=== PATIENT | female | born 1945 | race Caucasian/White ===

== ENCOUNTER 2020-02-09 14:49 | Outpatient (CLI) | payer MEDICARE, OTHER, SELFPAY ==
--- NOTE | 2020-02-09 14:58 | MM_ITS ---
WS: [id number] BILATERAL DIGITAL SCREENING MAMMOGRAPHY WITH CAD CLINICAL INFORMATION: SCREENING HISTORY: Screening mammogram. No current complaints. History of bilateral breast reduction. History o f right breast biopsy. COMPARISON: July 09, 2018 TECHNIQUE: Bilateral CC and MLO views. FINDINGS: Scattered fibroglandular densities bilaterally. Previously described 6 mm subareolar density right br east is unchanged. No suspicious focal mass, asymmetry, calcifications, or architectural distortion. No evidence of malignancy. Lucent centered calcifications. Vascular calcification. MM/[place] [id number] IMPRESSION: BI-RADS: 2-Benign FOLLOW UP: 1 Year Follow-up Recommend return to annual screening mammography.
== END 2020-02-09 14:50 | disposition home or self-care (01) ==
LOC: RADSHAW 14:54
PROVIDERS: PCP Family Medicine; Visit Provider Family Medicine
DX: Z12.31 Encounter for screening mammogram for malignant neoplasm of breast (principal)
CPT/HCPCS: 77067

== ENCOUNTER → 2020-04-06 12:53 | Outpatient (BNVA) | payer MEDICARE, OTHER, SELFPAY | PROVIDERS: PCP Family Medicine; Visit Provider Dermatology | DX: D69.2 Other nonthrombocytopenic purpura (principal); M67.449 Ganglion, unspecified hand; S60.10XA Contusion of unspecified finger with damage to nail, initial encounter; X58.XXXA Exposure to other specified factors, initial encounter; I87.2 Venous insufficiency (chronic) (peripheral); L57.0 Actinic keratosis; Z12.83 Encounter for screening for malignant neoplasm of skin | CPT/HCPCS: 17000; 17003; 99203 ==

== ENCOUNTER 2021-05-04 10:45 | Outpatient (CLI) | payer MEDICARE, OTHER, SELFPAY ==
--- NOTE | 2021-05-04 11:00 | XR_ITS ---
WS: [id number] DEXA (DUAL ENERGY X-RAY ABSORPTIOMETRY) Bone mineral density was performed using a [employer] machine. HISTORY: POST MENOPAUSAL COMPARISON: None available. Lumbar spine BMD (L1-L4): 1.687 g/cm2 T score: 4.2 Z score: 5.6 Total hip BMD: Left: 0.931 g/cm2. T score: -0.6 Z score: 1.0 Right: 0.904 g/cm2. T score: -0.8 Z score: 0.8 10 year probability of a major osteoporotic fracture is 12%. XR/XR DEXA axial skeleton* [id number] IMPRESSION: NORMAL BONE MINERAL DENSITY based upon the WHO classification for females.
== END 2021-05-04 10:46 | disposition home or self-care (01) ==
PROVIDERS: PCP Family Medicine; Visit Provider Family Medicine
DX: I25.10 Atherosclerotic heart disease of native coronary artery without angina pectoris (principal); I10 Essential (primary) hypertension; E78.5 Hyperlipidemia, unspecified; Z78.0 Asymptomatic menopausal state
CPT/HCPCS: 77080

== ENCOUNTER 2021-05-25 10:34 | Outpatient (CLI) | payer MEDICARE, OTHER, SELFPAY ==
--- NOTE | 2021-05-25 10:37 | MM_ITS ---
WS: [id number] BILATERAL DIGITAL SCREENING MAMMOGRAPHY WITH CAD CLINICAL INFORMATION: SCREENING HISTORY: Screening mammogram. No current complaints. COMPARISON: February 09, 2020 TECHNIQUE: Bilateral CC and MLO views. FINDINGS: History of breast reduction Scattered fibroglandular densities bilaterally. Punctate and lucent centered calcifications. Vascular calcification. No suspicious focal mass, asymmetry, calcifications, or architectural distortion. No evidence of malignancy. MM/[place] [id number] IMPRESSION: BI-RADS: 2-Benign FOLLOW UP: 1 Year Follow-up Recommend return to annual screening mammography.
== END 2021-05-25 10:35 | disposition home or self-care (01) ==
LOC: RADSHAW 10:35
PROVIDERS: PCP Family Medicine; Visit Provider Family Medicine
DX: Z12.31 Encounter for screening mammogram for malignant neoplasm of breast (principal)
CPT/HCPCS: 77067

== ENCOUNTER → 2022-02-14 14:40 | Outpatient (BNVA) | payer MEDICARE, OTHER, SELFPAY | PROVIDERS: PCP Family Medicine; Visit Provider Physician Assistant | DX: M51.36 Other intervertebral disc degeneration, lumbar region (principal); M43.16 Spondylolisthesis, lumbar region; M25.561 Pain in right knee; M25.562 Pain in left knee; M48.062 Spinal stenosis, lumbar region with neurogenic claudication | CPT/HCPCS: 72110; 73560; 73565; 99203; 99204 ==

== ENCOUNTER 2022-02-25 11:13 | Emergency (ER) | payer MEDICARE, OTHER, SELFPAY ==
[2022-02-25 11:26] VITALS: BP 148/95; PULSE 105; RESP 16; TEMP 36.7; O2SAT 98; BMI 29.0
--- NOTE | 2022-02-25 11:40 | XRR_ITS ---
PROCEDURE INFORMATION: Exam: XR Left Hand Exam date and time: 02/25/2022 12:52 PM Age: 76 years old Clinical indication: Injury or trauma; Other: Dog bite; Hand; Left; Additional info: Dog bit injury to hand TECHNIQUE: Imaging protocol: XR Left hand. Views: 3 or more views. COMPARISON: No relevant prior studies available. FINDINGS: Bones/joints: Osseous structures are intact. Negative for fracture. Moderate DJD at the base of the thumb and at several interphalangeal joint spaces. Soft tissues: No radiopaque foreign body. XR/XR hand LT min 3V* [id number] IMPRESSION: No acute findings.
--- NOTE | 2022-02-25 13:08 | W.ED.ANIMALB ---
HPI - Animal Bite General: Chief Complaint: Animal Bite Stated Complaint: Dog bite to L hand Time Seen by Provider: 02/25/22 12:52 History of Present Illness: Patient is a 76-year-old female comes to the ED with dog bite to left hand. Patient was feeding her 2 dogs and she usually keeps them at that time. She did not keep them during feeding this morning and dog started fighting over food. She went in to break the dogs up and one of them bit her left hand. Dogs are fully vaccinated including rabies vaccinations. 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 She has multiple lacerations on her second and third digit of left hand with some pain and swelling as well. She rinsed lacerations under some water and then cleaned them with hydrogen peroxide. She has not taken anything for pain before coming to the ED. She is not up-to-date on her tetanus. Associated symptoms: Deny chills, fever(s) or headache(s) Review of Systems Const: Denies: fever(s), chills or fatigue Eyes: Denies: change in vision or eye discomfort ENMT: Denies: throat pain, odynophagia, nasal discharge or nasal congestion Card: Denies: chest pain, palpitations, edema, swelling of feet/ankles, dyspnea on exertion or orthopnea Resp: Denies: dyspnea, productive cough or non-productive cough GI: Denies: abdominal pain, nausea, vomiting, diarrhea, constipation or hematochezia : Denies: flank pain, dysuria or hematuria Musc: Denies: neck pain, back pain or extremity swelling Skin/Breast: Reports: new lesions (Dog bite lacerations to left hand); Denies: rash Neuro: Denies: headache(s), numbness in extremities or weakness in extremities PFS ED PFSH: Medical History Glaucoma Hypertension Family History Daughter No problems noted. Other CAD (coronary artery disease) Cancer Denies family history of Diabetes Hypertension Stroke Social History Smoking and tobacco status: never smoked Alcohol intake: current Alcohol intake frequency: holidays/special occasions only History of recent travel: Yes (travels from [facility]) Physical Exam Const: COMMON NORMALS: no acute distress, patient oriented x3 and alert GENERAL APPEARANCE: cooperative HENMT: COMMON NORMALS: normocephalic HEAD & SCALP: normocephalic MOUTH: Normal oral and palatal mucosa present THROAT: posterior oropharynx normal and uvula midline Neck/C-Spine: COMMON NORMALS: supple GENERAL: Yes normal visual inspection Resp: COMMON NORMALS: normal respiratory effort, No retractions, No use of accessory muscles and clear to auscultation bilaterally AUSCULTATION: clear to auscultation bilaterally Cardio: COMMON NORMALS: regular rate, regular rhythm, S1 normal heart sound present, S2 normal heart sound present, No gallops present (Cardio), No clicks present (Cardio), No murmurs present (Cardio) and Peripheral pulses 2+ throughout RATE: regular rate RHYTHM: regular rhythm HEART SOUNDS: S1 normal heart sound present and S2 normal heart sound present PERIPHERAL PULSES: Peripheral pulses 2+ throughout GI: COMMON NORMALS: Normal to inspection, nondistended, normoactive bowel sounds present, Soft to palpation, non-tender and no masses PALPATION: Yes Soft to palpation : COMMON NORMALS: Yes no CVA tenderness BLADDER/KIDNEY EXAM: Yes no CVA tenderness Back/Pelvis: COMMON NORMALS: no CVA tenderness Extremity: NARRATIVE EXTREMITY EXAM: Patient has 2 lacerations that are irregular shaped approximately 1 cm in length on second digit of left hand. She also has 2 small superficial lacerations and puncture wounds on palm of left hand. She has a 2 cm linear laceration in palm of left hand between third and fourth digit. Neuro: COMMON NORMALS: patient oriented x3 and moves all extremities SENSORIUM/ORIENTATION: Yes alert Skin: GENERAL SKIN EXAM: dry skin Procedures Laceration Laceration 1: Site: hand (left) Side (If applicable): left Size (cm): 2 Description: linear Depth: simple, single layer Local Anesthetic: lidocaine 2% Amount of anesthesia used (mL): 3 Pre-repair: irrigated extensively (Irrigated extensively with normal saline and beta iodine wash.) Skin layer closed with: nylon Size (cm): 4-0 Number of sutures: 3 Technique: simple, interrupted Nerve Block Nerve Block 1: Time out performed: Yes Local Anesthetic: lidocaine 2% Amount of anesthesia used (mL): 4 Side: left Nerve Blocks: digital (2nd digit) Procedure Successful: Yes Patient Tolerated Procedure: well Complications: none Additional Comments: Pain was controlled while extensive cleaning and irrigation of wound with saline and beta iodine was performed. Course Vital Signs: Vital signs: Vital Signs Temperature 98.1 F 02/25/22 11:26 Pulse Rate 105 H 02/25/22 11:26 Respiratory Rate 16 02/25/22 11:26 Blood Pressure 148/95 02/25/22 11:26 Pulse Oximetry 98 02/25/22 11:26 MDM - Animal Bite Medical Decision Making Patient is a 68-year-old female comes to the ED with dog bite to left hand. She has multiple lacerations on left hand but most of them are under 1 cm. She does have 1 laceration that is 2 cm in length that lidocaine 2% was used locally and 3 sutures were placed to close up laceration. All lacerations were irrigated extensively with normal saline and iodine wash by nurse. Patient's hand was also soaked in saline and beta iodine solution as well. Lidocaine 2% was used on first digit as a digital block to help manage pain while cleaning wounds. X-ray showed no acute fractures or findings, but there does appear to be a small defect noted in the bone of the middle phalanx where bite injury occurred. The rest of patient's dog bite lacerations on the hand were left open to allow for any drainage. Triple antibiotic ointment was applied on laceration sites and nurse also applied a bandage. Patient was given updated tetanus here in the ED. Patient was given a dose of IM Rocephin due to possible dog bite injury to bone. She was discharged home with a prescription for Augmentin and norco for pain and told to follow-up with her PCP in the next 7 to 10 days reevaluation and to have sutures removed. Patient understood and agreed with plan. Lab Data Radiology Impressions Hand X-Ray 02/25/22 11:40 IMPRESSION: No acute findings. I reviewed the left hand x-ray and there does appear to be a possible cortical defect noted in middle phalanx of second digit which Is right where dog bite injury occurred and could be result of that. Discharge Plan Discharge Patient Disposition: Home Clinical Impression: Dog bite of hand Qualifiers: Encounter type: initial encounter Laterality: left Qualified Code(s): S61.452A - Open bite of left hand, initial encounter Condition: Stable Prescriptions: New amoxicillin-pot clavulanate 500-125 mg tablet 1 tab PO BID 10 Days Qty: 20 0RF No Action benazepril [Lotensin] 40 mg tablet 40 mg PO DAILY 0RF hydrochlorothiazide 25 mg tablet 25 mg PO DAILY 0RF allopurinol 100 mg tablet 100 mg PO DAILY 0RF Premarin 0.625 mg tablet 0.625 mg PO DAILY 0RF magnesium 200 mg tablet 200 mg PO DAILY 0RF calcium carbonate [Calcium 500] 500 mg calcium (1,250 mg) tablet 500 mg PO DAILY 0RF potassium gluconate 595 mg (99 mg) tablet 595 mg PO DAILY 0RF aspirin [Aspir-81] 81 mg tablet,delayed release (DR/EC) 81 mg PO DAILY 0RF cholecalciferol (vitamin D3) [Vitamin D3] 50 mcg (2,000 unit) capsule 50 mcg PO DAILY 0RF multivitamin Capsule 1 cap PO DAILY 0RF Lumigan 0.01 % drops 1 drop ophthalmic (eye) DAILY 0RF timolol 0.5 % drops 1 drop ophthalmic (eye) BID 0RF gabapentin 300 mg capsule 300 mg PO DAILY 0RF Discharge Orders: Discharge ED (Routine); Ordered 02/25/22 Ordered By: Zev Greenberg Referrals: Casey Benedict MD [Primary Care Provider] - Discharge Diet: Regular Discharge Activity: Limit activity as instructed Patient Instructions: Animal Bite (ED), Care For Your Stitches (DC), Acute Wounds (DC), Opioid Safety, Wound Care (General) Activity Restrictions/Additional Instructions: Take full course of antibiotics as prescribed. Keep laceration site clean and dry for the next 48 hours. Then after that you can clean with soap and water and re-bandage daily. Apply triple antibiotic ointment on wounds twice a day. Watch for signs of infection such as redness, warmth, increased tenderness and puslike drainage. If you see the signs of infection return to the ED, urgent care or PCP for reevaluation. call your PCP to schedule a follow-up appointment for reevaluation and suture removal in about 7-10 days. Continue taking all home meds. Follow discharge plans as discussed. You can return to the ED if symptoms worsen. Coding Level of Care Code ED Courtesy Driver for Travis Fwwei Exam Comprehensive
[2022-02-25] MEDS: acetaminophen 500 mg Tablet 1000 MG PO (13:18)
[2022-02-25] MEDS: tetanus-dipt-pertussis 0.5 mL SDV IM (13:18)
[2022-02-25] MEDS: lidocaine 2% INJ 20 mL 10 ML INJECTION (14:12)
[2022-02-25] MEDS: cefTRIAXone 1,000 MG in lidocaine 1% 2.1 ML 2 MG IM (15:17)
[2022-02-25] MEDS: neomycin-poly-bacitracin oint 28 gm 1 APPLIC TOPICAL (15:18)
--- NOTE | 2022-02-25 15:21 | PC.NURSE ---
Pt's lacerations bandaged and antibiotic ointment applied.
== END 2022-02-25 15:22 | disposition home or self-care (01) ==
PROVIDERS: Emergency Provider Physician Assistant; PCP Family Medicine
DX: S61.452A Open bite of left hand, initial encounter (principal); W54.0XXA Bitten by dog, initial encounter; Z23 Encounter for immunization
CPT/HCPCS: 12001; 73130; 90471; 90715; 96372; 99284; J0696

== ENCOUNTER → 2022-04-04 11:56 | Outpatient (BNVA) | payer MEDICARE, OTHER, SELFPAY | PROVIDERS: PCP Family Medicine; Visit Provider Family Medicine | DX: E78.5 Hyperlipidemia, unspecified (principal) | CPT/HCPCS: 80053; 80061; 85025 ==

== ENCOUNTER 2022-04-05 06:34 | Outpatient (CLI) | payer MEDICARE, OTHER, SELFPAY ==
--- NOTE | 2022-04-05 07:15 | MR_ITS ---
WS: [id number] MRI LUMBAR SPINE NONCONTRAST TECHNIQUE: Sagittal T1, T2 and STIR imaging. Axial T1 and T2 imaging. CLINICAL INFORMATION: lower back pain COMPARISON: None. FINDINGS: Minimal lumbar curve. No acute compression. No high-grade central canal stenosis. Slight anterolisthe sis L4 on L5. Slight retrolisthesis L2 on L3. Incidental Tarlov cyst in the sacrum. Tiny disc protrusion lower thoracic spine T12-L1 with slight effacement of ventral thecal sac. L1-L2: Mild disc osteophytic ridging. Disc desiccation. Mild facet arthropathy. Spinal canal and fora men are patent. L2-L3: Slight retrolisthesis L2 on L3. Impingement on traversing L3 nerve roots bilaterally. Moderate facet arthropathy. Mild to moderate RIGHT and mild LEFT foraminal narrowing. L3-L4: Mild annular bulging. Slight effacement of ventral thecal sac. Slight impingement on the trave rsing RIGHT L4 nerve root in the subarticular recess. Small LEFT foraminal protrusion with mild LEFT foraminal narrowing. Moderate to advanced facet arthropathy with ligamentum flavum hypertrophy. L4-L5: Mild annular bulge with a tiny annular tear. Mild central canal stenosis. Narrowing of the sub articular recess bilaterally. Advanced facet arthropathy. Foramen are patent. L5-S1: No significant disc bulging. Moderate facet arthropathy. Spinal canal and foramen are patent. LEFT renal cysts. Incidental Tarlov cysts in the sacrum. MR/MR lumbar spine wo con* [id number] IMPRESSION: 1. Mild lumbar curve. No acute compression. No high-grade central canal stenos is. 2. Slight anterolisthesis L4 on L5 with mild central canal 3. Slight retrolisthesis L2 on L3 with narrowing of the subarticular recess bi laterally. Mild to moderate RIGHT L2-L3 foraminal narrowing. 4. Tiny LEFT foraminal protrusion L3-L4 with mild LEFT foraminal narrowing. 5. Advanced facet arthropathy L4-L5 and L5-S1.
== END 2022-04-05 06:35 | disposition home or self-care (01) ==
LOC: RAD 06:36
PROVIDERS: PCP Family Medicine; Visit Provider Physician Assistant
DX: M43.16 Spondylolisthesis, lumbar region (principal); M48.062 Spinal stenosis, lumbar region with neurogenic claudication; M51.36 Other intervertebral disc degeneration, lumbar region
CPT/HCPCS: 72148

== ENCOUNTER → 2022-04-20 13:21 | Outpatient (BNVA) | payer MEDICARE, OTHER, SELFPAY | PROVIDERS: PCP Family Medicine; Visit Provider Orthopaedic Surgery | DX: M48.062 Spinal stenosis, lumbar region with neurogenic claudication (principal) | CPT/HCPCS: 99213; 99214 ==

== ENCOUNTER → 2022-05-15 08:50 | Outpatient (BNVA) | payer MEDICARE, OTHER, SELFPAY | PROVIDERS: PCP Family Medicine; Visit Provider Anesthesiology Pain Medicine | DX: M48.062 Spinal stenosis, lumbar region with neurogenic claudication (principal); M43.16 Spondylolisthesis, lumbar region; M51.36 Other intervertebral disc degeneration, lumbar region; M47.816 Spondylosis without myelopathy or radiculopathy, lumbar region; M79.604 Pain in right leg; M79.605 Pain in left leg | CPT/HCPCS: 99205 ==

== ENCOUNTER 2022-06-10 15:30 | Emergency (ER) | payer MEDICARE, OTHER, SELFPAY ==
--- NOTE | 2022-06-10 15:33 | XRR_ITS ---
PROCEDURE INFORMATION: Exam: XR Chest Exam date and time: 06/10/2022 4:15 PM Age: 77 years old Clinical indication: Pain; Chest pressure; Additional info: Chest pain TECHNIQUE: Imaging protocol: Radiologic exam of the chest. Views: 1 view. COMPARISON: No relevant prior studies available. FINDINGS: Lungs: Unremarkable. No consolidation. Pleural spaces: Unremarkable. No pleural effusion. No pneumothorax. Heart/Mediastinum: Unremarkable. No cardiomegaly. Bones/joints: Unremarkable. XR/XR chest 1V portable [id number] IMPRESSION: No acute findings.
[2022-06-10 15:40] VITALS: BP 144/80; PULSE 105; RESP 21; TEMP 36.7; O2SAT 95; BMI 29.2
--- NOTE | 2022-06-10 15:44 | ECG_ITS ---
[facility] Test Date: 2022-06-10 Pat Name: Radha Howard Department: Room: Gender: Female Benefit Specialist: : 1945 Requested By: Koffi Wade Order Number: [id number] Bobo MD: Mike Saini M.D. Measurements Intervals Binger Rate: 81 P: 34 IL: 128 QRS: 23 QRSD: 118 T: 56 QT: 381 QTc: 443 Interpretive Statements SINUS RHYTHM POSSIBLE LEFT ATRIAL ENLARGEMENT [-0.1mV P-WAVE IN V1/V2] LOW QRS VOLTAGE IN PRECORDIAL LEADS [QRS DEFLECTION < 1.0 mV IN CHEST LEADS] MODERATE INTRAVENTRICULAR CONDUCTION DELAY [110+ ms QRS DURATION] MODERATE ST DEPRESSION [0.05+ mV ST DEPRESSION] No previous ECG available for comparison Electronically Signed On 06-11-2022 8:33:44 CDT by Mike Saini M.D. [email or web address]
--- NOTE | 2022-06-10 15:59 | CTR_ITS ---
PROCEDURE INFORMATION: Exam: CT Abdomen And Pelvis Without Contrast Exam date and time: 06/10/2022 4:29 PM Age: 77 years old Clinical indication: Abdominal pain; Epigastric; Prior surgery; Surgery date: 6+ months; Surgery type: Hyster, gb; Additional info: Epigastric abd pain TECHNIQUE: Imaging protocol: Computed tomography of the abdomen and pelvis without contrast. Radiation optimization: All CT scans at this facility use at least one of these dose optimization techniques: automated exposure control; mA and/or kV adjustment per patient size (includes targeted exams where dose is matched to clinical indication); or iterative reconstruction. COMPARISON: MR lumbar spine wo con* [id number] 04/05/2022 7:47 AM RADIATION DOSE METRICS: Total DLP (mGy-cm): 667.97 FINDINGS: Liver: Normal. No mass. Gallbladder and bile ducts: The gallbladder has been removed. Pancreas: Normal. No ductal dilation. Spleen: Normal. No splenomegaly. Adrenal glands: Normal. No mass. Kidneys and ureters: Normal. No hydronephrosis. Stomach and bowel: There is diverticulosis of the colon without evidence of diverticulitis. There are air-fluid levels in nondilated small bowel loops in the left upper quadrant abdomen. Appendix: No evidence of appendicitis. Intraperitoneal space: Unremarkable. No free air. No significant fluid collection. Vasculature: Unremarkable. No abdominal aortic aneurysm. Lymph nodes: Unremarkable. No enlarged lymph nodes. Urinary bladder: Unremarkable as visualized. Reproductive: The uterus is not visualized, consistent with hysterectomy. Bones/joints: Unremarkable. No acute fracture. Soft tissues: Unremarkable. CT/CT abdomen pelvis wo con [id number] IMPRESSION: There are air-fluid levels in nondilated small bowel loops in the left upper quadrant abdomen which can be seen with a nonspecific enteritis.
--- NOTE | 2022-06-10 16:00 | ED_ITS ---
HPI - Chest Pain General: Chief Complaint: Chest Pain Stated Complaint: Chest pains Time Seen by Provider: 06/10/22 15:48 Source: patient Mode of arrival: ambulatory Limitations: no limitations History of Present Illness: 77-year-old female states that throughout the night last night and today she has been having some epigastric abdominal pain. States been a burning type pain in her upper abdomen states that today she started having some burning in her chest that seem to radiate from her abdomen. States the pain is mild in nature rates it a 3 out of 10 denies any worsening improving factors she has had no vomiting or diarrhea no diaphoresis. Associated symptoms: Reports abdominal pain and nausea; Deny dyspnea or fever(s) Review of Systems Const: Denies: fever(s), chills, body aches or change in appetite Eyes: Denies: blurry vision or eye discomfort ENMT: Denies: throat pain or dental pain Card: Reports: chest pain Resp: Denies: dyspnea GI: Reports: abdominal pain and nausea : Denies: dysuria Musc: Denies: neck pain or back pain Skin/Breast: Denies: rash Neuro: Denies: headache(s) Psych: Denies: depression Frederic/Lymph: Denies: easy bruising All/Imm: Denies: urticaria PFSH ED PFSH: Medical History Glaucoma Hypertension Family History Daughter No problems noted. Other CAD (coronary artery disease) Cancer Denies family history of Diabetes Hypertension Stroke Social History Smoking and tobacco status: never smoked Second hand smoke exposure: Yes Alcohol intake: never History of recent travel: No Physical Exam Const: COMMON NORMALS: no acute distress, patient oriented x3 and healthy appearing HENMT: COMMON NORMALS: normocephalic and atraumatic HEAD & SCALP: normocephalic and atraumatic Eye: COMMON NORMALS: Equal, round and reactive pupils present and EOMs intact bilaterally PUPIL: Yes Equal, round and reactive pupils present Neck/C-Spine: COMMON NORMALS: full ROM and supple Chest: COMMONS NORMALS: normal inspection of the chest and normal palpation of entire chest wall Resp: COMMON NORMALS: normal respiratory effort, No retractions, No use of accessory muscles and clear to auscultation bilaterally AUSCULTATION: clear to auscultation bilaterally Cardio: COMMON NORMALS: regular rate, regular rhythm and No murmurs present (Cardio) RATE: regular rate RHYTHM: regular rhythm GI: COMMON NORMALS: Normal to inspection, nondistended, normoactive bowel sounds present, Soft to palpation, non-tender and no masses PALPATION: Yes Soft to palpation Extremity: COMMON NORMALS: normal to inspection and full ROM Neuro: COMMON NORMALS: patient oriented x3, moves all extremities and no focal motor deficits Psych: COMMON NORMALS: mental status grossly normal, Normal thought process present and cooperative THOUGHT PROCESS: Normal thought process present Skin: COMMON NORMALS: no rashes or lesions noted and no wounds GENERAL SKIN EXAM: no rashes or lesions noted Procedures Intubation Time out performed: Yes sedative: none ET Tube Size: 8 Tube Secured Depth (cm): 26 Tube Secured Location: teeth Tube Placement Confirmation: visualized tube passing through cords, equal breath sounds bilaterally, no breath sounds over epigastrium and confirmation by capnometry Patient Tolerated Procedure: well Course Vital Signs: Vital signs: Vital Signs Temperature 98.0 F 06/10/22 15:40 Pulse Rate 82 06/10/22 16:05 Respiratory Rate 17 06/10/22 16:05 Blood Pressure 153/83 06/10/22 16:05 Pulse Oximetry 98 06/10/22 16:05 Oxygen Delivery Me thod 06/10/22 15:40 MDM - Chest Pain Medical Decision Making aPatient really presented here with epigastric abdominal pain that radiated into her chest her pain had been completely resolved by GI cocktail first EKG showed no ST elevation. I blood drawn including troponin, the troponin came back quite elevated at 1400 and I went out and asked for a second EKG. Miss carvalho had just went to the bathroom and walked back to her room and then was found unresponsive with no pulse. Patient had multiple rounds of chest compressions along with epinephrine never had any risks return of spontaneous circulation. Patient's time of was 1728 from a cardiac arrest. Lab Data : 06/10/22 16:05 06/10/22 16:05 Radiology Impressions Chest X-Ray 06/10/22 15:33 IMPRESSION: No acute findings. Abdomen/Pelvis CT 06/10/22 15:59 IMPRESSION: There are air-fluid levels in nondilated small bowel loops in the left upper quadrant abdomen which can be seen with a nonspecific enteritis. Laboratory Results WBC 13.9 10^3/uL (4.0-10.0) H 06/10/22 16:05 RBC 4.51 10^6/uL (4.1-5.3) 06/10/22 16:05 Hgb 14.1 g/dL (11.5-15.3) 06/10/22 16:05 Hct 44.3 % (37.0-47.0) 06/10/22 16:05 MCV 98.2 fl (81-99) 06/10/22 16:05 MCH 31.3 pg (28.0-34.0) 06/10/22 16:05 MCHC 31.8 g/dL (30.0-36.0) 06/10/22 16:05 RDW 13.6 % (12.1-15.1) 06/10/22 16:05 Plt Count 280 10^3/cmm (130-400) 06/10/22 16:05 MPV 10.5 fL (7.4-10.4) H 06/10/22 16:05 Neut % (Auto) 75.4 % 06/10/22 16:05 Lymph % (Auto) 12.4 % 06/10/22 16:05 [place] % (Auto) 11.4 % 06/10/22 16:05 Eos % (Auto) 0.1 % 06/10/22 16:05 Baso % (Auto) 0.4 % 06/10/22 16:05 Neut # (Auto) 10.50 10^3/uL (1.8-7.7) H 06/10/22 16:05 Lymph # (Auto) 1.7 10^3/uL (0.8-4.8) 06/10/22 16:05 [place] # (Auto) 1.6 10^3/uL (0.2-0.9) H 06/10/22 16:05 Eos # (Auto) 0.0 10^3/uL (0.0-0.8) 06/10/22 16:05 Baso # (Auto) 0.1 10^3/uL (0.0-0.1) 06/10/22 16:05 Nucleated RBC % (auto) 0 % 06/10/22 16:05 Nucleated RBCs # 0.0 /100WBC 06/10/22 16:05 Sodium 133 mmol/L (136-145) L 06/10/22 16:05 Potassium 4.2 mmol/L (3.5-5.1) 06/10/22 16:05 Chloride 94 mmol/L (98-107) L 06/10/22 16:05 Carbon Dioxide 25 mmol/L (22-29) 06/10/22 16:05 Anion Gap 18.2 (5-19) 06/10/22 16:05 BUN 14 mg/dL (8-23) 06/10/22 16:05 Creatinine 0.7 mg/dL (0.5-0.9) 06/10/22 16:05 GFR Calculation Not Reportable 06/10/22 16:05 Glucose 134 mg/dL (65-115) H 06/10/22 16:05 Calculated Osmolality 278 mOsm/kg (285-295) L 06/10/22 16:05 Calcium 9.7 mg/dL (8.5-10.5) 06/10/22 16:05 Total Bilirubin 0.7 mg/dL (0.15-1.2) 06/10/22 16:05 AST 259 U/L (0-32) H 06/10/22 16:05 ALT 48 U/L (0-33) H 06/10/22 16:05 Alkaline Phosphatase 85 U/L (35-105) 06/10/22 16:05 Troponin T Baseline 1407 ng/L (0-10) H* 06/10/22 16:05 Total Protein 8.3 g/dL (6.6-8.7) 06/10/22 16:05 Albumin 3.7 g/dL (3.5-5.2) 06/10/22 16:05 Globulin 4.6 g/dL (1.3-4.6) 06/10/22 16:05 Lipase 15 U/L (13-60) 06/10/22 16:05 EKG Data EKG 1: I personally reviewed and interpreted this EKG as follows: EKG interpretation date: 06/10/22 EKG interpretation time: 15:44 Interpretation: Normal sinus rhythm heart rate [address] or T wave abnormalities QRS 118 QTC 418 Discharge Plan Discharge Patient Disposition: Clinical Impression: Cardiac arrest Coding Level of Care Code ED Exceptional Student Education Teacher for Travis Fwwei Exam Comprehensive
[2022-06-10 16:05] VITALS: BP 153/83; PULSE 82; RESP 17; O2SAT 98
[2022-06-10] MEDS: ondansetron 2 mg/ML SDV 2 mL 4 MG IVP (16:23)
[2022-06-10] MEDS: lidocaine 2% viscous 15 ML, aluminum-mag hydrox-simethicon 30 ML, sucralfate oral liq 1 GM PO (16:24)
[2022-06-10 16:52] LABS: Basophils # 0.1 10^3/uL (0.0-0.1); Basophils % 0.4 %; Eosinophils % 0.1 %; Hematocrit 44.3 % (37.0-47.0); Hemoglobin 14.1 g/dL (11.5-15.3); Lymphocytes # 1.7 10^3/uL (0.8-4.8); Lymphocytes % 12.4 %; Mean Corpuscular HGB Conc 31.8 g/dL (30.0-36.0); Mean Corpuscular Hemoglobin 31.3 pg (28.0-34.0); Mean Corpuscular Volume 98.2 fl (81-99); Mean Platelet Volume 10.5 fL (7.4-10.4); Monocytes # 1.6 10^3/uL (0.2-0.9); Monocytes % 11.4 %; Neutrophils % 75.4 %; Nucleated Red Blood Cells % 0 %; Platelet Count 280 10^3/cmm (130-400); Red Blood Count 4.51 10^6/uL (4.1-5.3); Red Cell Distribution Width 13.6 % (12.1-15.1); White Blood Count 13.9 10^3/uL (4.0-10.0)
[2022-06-10 17:05] LABS: Alanine Aminotransferase 48 U/L (0-33); Albumin Level 3.7 g/dL (3.5-5.2); Alkaline Phosphatase 85 U/L (35-105); Anion Gap 18.2 (5-19); Aspartate Amino Transferase 259 U/L (0-32); Blood Urea Nitrogen 14 mg/dL (8-23); Calcium 9.7 mg/dL (8.5-10.5); Carbon Dioxide 25 mmol/L (22-29); Chloride 94 mmol/L (98-107); Globulin 4.6 g/dL (1.3-4.6); Glucose 134 mg/dL (65-115); Lipase 15 U/L (13-60); Osmolality Calculated 278 mOsm/kg (285-295); Potassium 4.2 mmol/L (3.5-5.1); Sodium 133 mmol/L (136-145); Total Bilirubin 0.7 mg/dL (0.15-1.2); Total Protein 8.3 g/dL (6.6-8.7)
[2022-06-10 17:08] LABS: Troponin(5th) Baseline 1407 ng/L (0-10)
--- NOTE | 2022-06-10 17:39 | PC.NURSE ---
I unhooked pt from the shelter monitor so she could use the restroom, she ambulated to the bathroom, i seen her return her room, i returned to the room shortly after to hook her back up and the tech was at the door she said she needed help, when i entered the room pt was laying supine on the bed. She was pale and appeared lifeless, i checked for a pulse and could not find one, another RN also checked for a pulses and found none i started CPR and a code was called.
--- NOTE | 2022-06-10 20:12 | PC.NURSE ---
Family at bedside, daughter wishes for body to be released to [facility]. Release of body form complete, contacted [facility] and notified answering service of body to be transferred to home
--- NOTE | 2022-06-10 21:57 | PC.NURSE ---
[place] [facility] [place]
== END 2022-06-10 21:59 | disposition expired ==
PROVIDERS: Nurse Practitioner Family; Emergency Provider Emergency Medicine; PCP Family Medicine
DX: I46.9 Cardiac arrest, cause unspecified (principal); R10.13 Epigastric pain; I10 Essential (primary) hypertension
CPT/HCPCS: 71045; 74176; 80053; 83690; 84484; 85025; 93005; 96374; 99285; J0171; J0461; J2405